=== PATIENT | male | born 1995 | race Hispanic/Latino ===

== ENCOUNTER 2019-04-03 18:10 | Emergency (ER) | payer OTHER ==
--- NOTE | 2019-04-03 18:50 | ER ---
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 Transition of care: patient was not received from another setting of care. Onset of symptoms was April 03, 2019. Risk Assessment: Do you want to hurt yourself or someone else? Patient reports no desire to harm self or others. Initial Sepsis Screen: Does the patient meet any 2 criteria? No. Patient's initial sepsis screen is negative. Does the patient have a suspected source of infection? No. Patient's initial sepsis screen is negative. Care prior to arrival: None. 18:20 Method Of Arrival: Ambulatory 18:20 Acuity: HARDIK 4 hj Historical: - Allergies: 18:21 No Known Allergies; hj - PMHx: 18:21 None; hj - PSHx: 18:21 None; hj - Immunization history:: Flu vaccine status is unknown. - Family history:: not pertinent. - Social history:: Smoking status: unknown. - Ebola Screening: : No symptoms or risks identified at this time. Screenin:17 Abuse screen: Denies threats or abuse. Denies injuries from another. Nutritional mg2 screening: No deficits noted. Tuberculosis screening: No symptoms or risk factors identified. Fall Risk None identified. Assessment: 19:16 General: Appears in no apparent distress. comfortable, Behavior is calm, cooperative. mg2 Pain: Complains of pain in throat Pain does not radiate. Pain currently is 4 out of 10 on a pain scale. Quality of pain is described as aching, Pain began gradually, 1 day ago. Is intermittent. Neuro: Level of Consciousness is awake, alert, obeys commands, Oriented to person, place, time, situation. Cardiovascular: Capillary refill < 3 seconds Patient's skin is warm and dry. Respiratory: Airway is patent Respiratory effort is even, unlabored, Breath sounds are clear bilaterally. in right upper lobe, left upper lobe, right middle lobe, left lower lobe and right lower lobe. GI: No signs and/or symptoms were reported involving the gastrointestinal system. : No signs and/or symptoms were reported regarding the genitourinary system. EENT: Throat is reddened has enlarged tonsils on right. Derm: Skin is intact, is healthy with good turgor, Skin is pink, warm \T\ dry. normal. Musculoskeletal: Circulation, motion, and sensation intact. Capillary refill < 3 seconds. 19:50 Reassessment: no reaction noted from im injection. mg2 Vital Signs: 18:21 BP 121 / 65; Pulse 114; Resp 16; Temp 102.2(O); Pulse Ox 97% on R/A; Weight 69.85 kg; hj Height 5 ft. 6 in. (167.64 cm); Pain 10/10; 18:40 Temp 100.8(O); hj 19:49 BP 120 / 78; Pulse 104; Resp 17; Temp 101; Pulse Ox 100% on R/A; Pain 3/10; mg2 18:21 Body Mass Index 24.85 (69.85 kg, 167.64 cm) ED Course: 18:18 Patient arrived in ED. mr 18:21 Triage completed. hj 18:21 Arm band placed on left wrist. hj 18:40 Orlando Alexander RN is Primary Nurse. mg2 18:43 Garth May MD is Attending Physician. darren 18:50 Courtney Mendiola MD is Referral Physician. darren 19:17 No provider procedures requiring assistance completed. Patient did not have IV access mg2 during this emergency room visit. 19:45 Patient has correct armband on for positive identification. mg2 Administered Medications: 18:24 Drug: Tylenol 1000 mg Route: PO; hj 19:31 Follow up: Response: No adverse reaction; Temperature is decreased mg2 19:15 Drug: Decadron 10 mg Route: IM; Site: left gluteus; mg2 19:31 Follow up: Response: No adverse reaction mg2 19:15 Drug: Bicillin L-A 1.2 million units Route: IM; Site: right gluteus; mg2 19:31 Follow up: Response: No adverse reaction mg2 19:15 Drug: Clindamycin 300 mg Route: PO; mg2 19:31 Follow up: Response: No adverse reaction mg2 19:49 Drug: Motrin 400 mg Route: PO; mg2 19:49 Follow up: Response: No adverse reaction; Medication administered at discharge. mg2 Outcome: 18:50 Discharge ordered by . darren 19:50 Discharged to home ambulatory, with family. mg2 19:50 Condition: stable 19:50 Discharge instructions given to patient, family, Instructed on discharge instructions, follow up and referral plans. medication usage, Demonstrated understanding of instructions, follow-up care, medications, Prescriptions given X 1. 19:50 Patient left the ED. mg2 Signatures: Garth May MD MD cha Rivera, Mary George Voss, RN RN Orlando Allen RN RN mg2 Corrections: (The following items were deleted from the chart) 18:23 18:21 Pulse 114bpm; Resp 16bpm; Pulse Ox 97% RA; Temp 102.2F Oral; 69.85 kg; Height 5 hj ft. 6 in.; BMI: 24.8; Pain 10/10; hj
--- NOTE | 2019-04-03 18:50 | EDPHYS ---
Physician Documentation [facility] Name: Chente Garcia Age: 23 yrs Sex: Male : 1995 Arrival Date: 04/03/2019 Time: 18:18 Bed 24 Private MD: ED Physician Garth May HPI: 04/03 18:47 This 23 yrs old Male presents to ER via Ambulatory with complaints of Sore darren Throat, Fever. 18:47 The patient presents with sore throat. The patient describes throat pain as burning, darren constant. Onset: The symptoms/episode began/occurred 3 day(s) ago. Severity of symptoms: At their worst the symptoms were mild, in the emergency department the symptoms are unchanged. Modifying factors: The symptoms are alleviated by fluids, the symptoms are aggravated by swallowing, Patient's oral intake status: good. Associated signs and symptoms: Pertinent positives: fever. The patient has not experienced similar symptoms in the past. Historical: - Allergies: 18:21 No Known Allergies; hj - PMHx: 18:21 None; hj - PSHx: 18:21 None; hj - Immunization history:: Flu vaccine status is unknown. - Family history:: not pertinent. - Social history:: Smoking status: unknown. - Ebola Screening: : No symptoms or risks identified at this time. ROS: 18:47 Constitutional: Negative for fever, chills, and weight loss, Eyes: Negative for injury, darren pain, redness, and discharge, Neck: Negative for injury, pain, and swelling, Cardiovascular: Negative for chest pain, palpitations, and edema, Respiratory: Negative for shortness of breath, cough, wheezing, and pleuritic chest pain, Abdomen/GI: Negative for abdominal pain, nausea, vomiting, diarrhea, and constipation, Back: Negative for injury and pain, : Negative for injury, bleeding, discharge, and swelling, MS/Extremity: Negative for injury and deformity, Skin: Negative for injury, rash, and discoloration, Neuro: Negative for headache, weakness, numbness, tingling, and seizure. 18:47 ENT: Positive for difficulty swallowing, rhinorrhea, sinus congestion, sore throat. Exam: 18:47 Constitutional: This is a well developed, well nourished patient who is awake, alert, darren and in no acute distress. Head/Face: Normocephalic, atraumatic. Eyes: Pupils equal round and reactive to light, extra-ocular motions intact. Lids and lashes normal. Conjunctiva and sclera are non-icteric and not injected. Cornea within normal limits. Periorbital areas with no swelling, redness, or edema. Neck: Trachea midline, no thyromegaly or masses palpated, and no cervical lymphadenopathy. Supple, full range of motion without nuchal rigidity, or vertebral point tenderness. No Meningismus. Chest/axilla: Normal chest wall appearance and motion. Nontender with no deformity. No lesions are appreciated. Cardiovascular: Regular rate and rhythm with a normal S1 and S2. No gallops, murmurs, or rubs. Normal PMI, no JVD. No pulse deficits. Respiratory: Lungs have equal breath sounds bilaterally, clear to auscultation and percussion. No rales, rhonchi or wheezes noted. No increased work of breathing, no retractions or nasal flaring. Abdomen/GI: Soft, non-tender, with normal bowel sounds. No distension or tympany. No guarding or rebound. No evidence of tenderness throughout. Back: No spinal tenderness. No costovertebral tenderness. Full range of motion. Male : Normal genitalia with no discharge or lesions. Skin: Warm, dry with normal turgor. Normal color with no rashes, no lesions, and no evidence of cellulitis. MS/ Extremity: Pulses equal, no cyanosis. Neurovascular intact. Full, normal range of motion. Neuro: Awake and alert, GCS 15, oriented to person, place, time, and situation. Cranial nerves II-XII grossly intact. Motor strength 5/5 in all extremities. Sensory grossly intact. Cerebellar exam normal. Normal gait. Psych: Awake, alert, with orientation to person, place and time. Behavior, mood, and affect are within normal limits. 18:47 ENT: Posterior pharynx: Tonsils: bilaterally enlarged, with erythema, Uvula: normal, swelling, that is mild, erythema, that is moderate, exudate, is not appreciated. Vital Signs: 18:21 BP 121 / 65; Pulse 114; Resp 16; Temp 102.2(O); Pulse Ox 97% on R/A; Weight 69.85 kg; hj Height 5 ft. 6 in. (167.64 cm); Pain 10/10; 18:40 Temp 100.8(O); hj 19:49 BP 120 / 78; Pulse 104; Resp 17; Temp 101; Pulse Ox 100% on R/A; Pain 3/10; mg2 18:21 Body Mass Index 24.85 (69.85 kg, 167.64 cm) MDM: 18:43 Patient medically screened. [facility] 18:47 Data reviewed: vital signs, nurses notes. [facility] 04/03 18:47 Order name: PO challenge; Complete Time: 19:15 [facility] Administered Medications: 18:24 Drug: Tylenol 1000 mg Route: PO; hj 19:31 Follow up: Response: No adverse reaction; Temperature is decreased mg2 19:15 Drug: Decadron 10 mg Route: IM; Site: left gluteus; mg2 19:31 Follow up: Response: No adverse reaction mg2 19:15 Drug: Bicillin L-A 1.2 million units Route: IM; Site: right gluteus; mg2 19:31 Follow up: Response: No adverse reaction mg2 19:15 Drug: Clindamycin 300 mg Route: PO; mg2 19:31 Follow up: Response: No adverse reaction mg2 19:49 Drug: Motrin 400 mg Route: PO; mg2 19:49 Follow up: Response: No adverse reaction; Medication administered at discharge. mg2 Disposition: 04/03/19 18:50 Discharged to Home. Impression: Acute tonsillitis - preitonsilitis. - Condition is Stable. - Discharge Instructions: Tonsillitis, Tonsillitis, [id number]. - Prescriptions for Clindamycin HCl 300 mg Oral Capsule - take 1 capsule by ORAL route every 6 hours for 10 days; 40 capsule. - Medication Reconciliation Form, Thank You Letter, Antibiotic Education, Prescription Opioid Use, Work release form form. - Follow up: Private Physician; When: 2 - 3 days; Reason: Recheck today's complaints, Continuance of care, Re-evaluation by your physician. Follow up: Courtney Mendiola MD; When: 2 - 3 days; Reason: Recheck today's complaints, Re-evaluation by your physician. - Problem is new. - Symptoms have improved. Signatures: Dispatcher [employer] EDGarth Burton MD MD cha Joaquin, Henry, RN RN Orlando Alexander RN RN mg2 Corrections: (The following items were deleted from the chart) 18:50 18:50 04/03/2019 18:50 Discharged to Home. Impression: Acute tonsillitis - darren preitonsilitis. Condition is Stable. Forms are Medication Reconciliation Form, Thank You Letter, Antibiotic Education, Prescription Opioid Use. Follow up: Private Physician; When: 2 - 3 days; Reason: Recheck today's complaints, Continuance of care, Re-evaluation by your physician. Problem is new. Symptoms have improved. [facility] 19:44 18:41 Group A Streptococcus Rapid [id number] ordered. [facility] 19:50 18:50 04/03/2019 18:50 Discharged to Home. Impression: Acute tonsillitis - mg2 preitonsilitis. Condition is Stable. Forms are Medication Reconciliation Form, Thank You Letter, Antibiotic Education, Prescription Opioid Use. Follow up: Private Physician; When: 2 - 3 days; Reason: Recheck today's complaints, Continuance of care, Re-evaluation by your physician. Follow up: Courtney Mendiola; When: 2 - 3 days; Reason: Recheck today's complaints, Re-evaluation by your physician. Problem is new. Symptoms have improved. darren
[2019-04-03] MEDS ORDERED: DEXAMETHASONE 10 MG/ML VIAL ONE (19:22)
[2019-04-03] MEDS ORDERED: CLINDAMYCIN HCL 150 MG CAP ONE (19:22)
[2019-04-03] MEDS ORDERED: PEN G BENZ LA 1.2MU/2ML SYRINGE IM ONE (19:23)
[2019-04-03] MEDS ORDERED: IBUPROFEN 400 MG TAB ONE (20:01)
== END 2019-04-03 19:50 | disposition home or self-care (01) ==
LOC: ER 18:10
DX: J03.90 Acute tonsillitis, unspecified (principal); J36 Peritonsillar abscess
CPT/HCPCS: 96372; 99283; J0561; J1100